=== PATIENT | female | born 1985 | race Caucasian/White ===

== ENCOUNTER 2024-04-24 17:20 | Emergency (ER) | payer OTHER, SELFPAY ==
[2024-04-24 17:24] VITALS: BP 141/79; PULSE 69; TEMP 36.9; O2SAT 100; BMI 22.7
--- NOTE | 2024-04-24 17:34 | ECG_ITS ---
[facility] Test Date: 2024-04-24 Pat Name: CHELY NOLAND Department: Room: - Gender: Female Glass [employer] Rep[employer]r: : 1985 Requested By: Order Number: [id number] Reading MD: KELY EASTON Measurements Intervals [place] Rate: 67 P: 16 [place]: 128 QRS: 58 QRSD: 76 T: 41 QT: 400 QTc: 416 Interpretive Statements 1100 Sinus rhythm 9110 normal ECG No previous ECG available for comparison Electronically Signed On 04-24-2024 18:03:34 EDT by KELY EASTON
--- NOTE | 2024-04-24 17:42 | ED.CHESTPAI1 ---
HPI - Chest Pain General Chief Complaint: Chest Pain Stated Complaint: Chest Pain Time Seen by Provider: 04/24/24 17:21 Source: patient Mode of arrival: Wheelchair Limitations: no limitations History of Present Illness HPI narrative: Patient is a 39-year-old female who presents to the emergency department with her significant other for evaluation of anterior chest pain radiating through to the back for the last hour. She states she does feel winded like she cannot catch her breath. She has had minimal cough. No fevers or other upper respiratory symptoms. She denies abdominal pain, nausea, vomiting, peripheral edema. Her significant other provides the majority of the history and states that she is a half a pack per day cigarette smoker. She had issues with chest pain in the past and was seen about 4-1/2 years ago before they lost insurance, patient was given a working diagnosis of POTS and myocarditis, although he states that she was never able to be really diagnosed because they could not complete testing as they ran out of money and insurance. She denies a possibility of . Related Data Previous Rx's ?Medication ?Instructions ?Recorded methylprednisolone 4 mg tablets in See Rx Instructions .Route 04/24/24 a dose pack (Medrol (Don)) .COMPLEX #21 ea Allergies Allergy/AdvReac Type Severity Reaction Status Date / Time Penicillins AdvReac Intermediate Rash Verified 04/24/24 17:30 bee Allergy Severe Hives Uncoded 04/24/24 17:30 Review of Systems ROS Constitutional Denies: fever or chills Ears, nose, mouth, and throat Denies: throat pain or nasal congestion Cardiovascular Reports: chest pain Respiratory Reports: shortness of breath and cough Gastrointestinal Denies: abdominal pain, nausea or vomiting Musculoskeletal Denies: back pain or neck pain Integumentary/Breast Denies: rash Hematologic/Lymphatic Denies: easy bruising or easy bleeding Exam Narrative Exam Narrative: Gen.: Awake, alert, in no distress Head: Normocephalic, atraumatic ENT: Moist mucous membranes Respiratory: No respiratory distress, lungs clear bilaterally Cardio: Regular rate and rhythm Gastrointestinal: Abdomen is soft, nondistended and nontender to palpation Extremities: Moves extremities equally, no pedal edema Psych: Normal mood and affect Neuro: No focal neuro deficit Skin: Warm, dry, intact Constitutional Vital Signs, click to edit/add: Last Vital Signs Temp 98.4 F 04/24/24 17:24 Pulse 69 04/24/24 17:24 Resp 18 04/24/24 17:24 BP 141/79 04/24/24 17:24 Pulse Ox 100 04/24/24 17:24 O2 Del Method Room Air 04/24/24 17:24 Course Vital Signs Vital signs: Vital Signs Temperature 98.4 F 04/24/24 17:24 Pulse Rate 69 04/24/24 17:24 Respiratory Rate 18 04/24/24 17:24 Blood Pressure 141/79 04/24/24 17:24 Pulse Oximetry 100 04/24/24 17:24 Oxygen Delivery Method Room Air 04/24/24 17:24 Temperature 98.4 F 04/24/24 17:24 Pulse Rate 69 04/24/24 17:24 Respiratory Rate 18 04/24/24 17:24 Blood Pressure 141/79 04/24/24 17:24 Pulse Oximetry 100 04/24/24 17:24 Oxygen Delivery Method Room Air 04/24/24 17:24 MDM - Chest Pain MDM Narrative Medical decision making narrative: Patient medicated with Toradol and Solu-Medrol, labs including D-dimer and troponin are within normal limits and EKG is unremarkable. Chest x-ray shows no evidence of acute cardiopulmonary changes. Patient with a heart score of 1 for risk factor of smoking. She is discharged with prednisone, possible pleurisy. Follow-up with PCP and return to the ER if symptoms change or worsen. SHARED APC VISIT, PHYSICIAN ATTESTATION: [id number] I performed a substantive part of the MDM during the patient?s E/M visit. I personally evaluated and examined the patient. I personally made or approved the documented management plan and acknowledge its risk of complications. Medical Records Data Attestation: I reviewed the patient's medical records. Lab Data Attestation: I reviewed the patient's lab results. Labs: Lab Results 04/24/24 Range/Units 17:34 WBC 8.0 (4.0-11.0) 10^3/uL RBC 4.24 (4.20-5.40) 10^6/uL Hgb 14.2 (12.0-16.0) g/dL Hct 40.6 (36.0-48.0) % MCV 95.8 (81.0-99.0) fL MCH 33.5 (26.7-34.0) pg MCHC 35.0 (29.9-35.2) g/dL RDW 12.5 (11.0-15.0) % Plt Count 317 (150-450) 10^3/uL MPV 10.3 (9.5-13.5) fL Neut % (Auto) 63.9 (43.0-75.0) % Lymph % (Auto) 21.0 (20.5-60.0) % [place] % (Auto) 12.6 H (1.7-12.0) % Eos % (Auto) 1.7 (0.9-7.0) % Baso % (Auto) 0.6 (0.2-2.0) % Neut # (Auto) 5.1 (1.4-6.5) 10^3/uL Lymph # (Auto) 1.7 (1.2-3.8) 10^3/uL [place] # (Auto) 1.0 H (0.3-0.8) 10^3/uL Eos # (Auto) 0.1 (0.0-0.7) 10^3/uL Baso # (Auto) 0.1 (0.0-0.1) 10^3/uL Abs Immat Gran (auto) 0.02 (0.00-0.03) 10^3/uL Imm/Tot Granulo (auto) 0.2 (0.0-0.5) % PT 10.9 (9.0-11.6) sec INR 1.03 D-Dimer 0.20 (<=0.59) mg/L FEU Sodium 140 (136-145) mmol/L Potassium 4.0 (3.5-5.1) mmol/L Chloride 105 (98-107) mmol/L Carbon Dioxide 22.4 (21.0-32.0) mmol/L Anion Gap 16.6 BUN 8.0 (7.0-18.0) mg/dL Creatinine 0.71 (0.55-1.02) mg/dL Est GFR ( Amer) >60 (>=60 mL/min/1.73m^2) Est GFR (Non-Af Amer) >60 (>=60 mL/min/1.73m^2) BUN/Creatinine Ratio 11.3 Glucose 121 H (74-106) mg/dL Calcium 9.1 (8.5-10.1) mg/dL Total Bilirubin 0.5 (0.2-1.0) mg/dL AST 22 (15-37) U/L ALT 31 (14-59) U/L Alkaline Phosphatase 64 (46-116) U/L Troponin I High Sens 7.0 (4.0-51.3) pg/mL NT-Pro-B Natriuret Pep 28.0 (<=450.0) pg/mL Total Protein 7.1 (6.4-8.2) g/dL Albumin 3.8 (3.4-5.0) g/dL Globulin 3.3 g/dL Albumin/Globulin Ratio 1.2 Lipase 28.0 (16.0-77.0) U/L Serum HCG, Qual Negative (NEGATIVE) Imaging Data Chest x-ray: Attestation: I have reviewed the pertinent imaging results. Radiologist's impression: ITS Impressions Chest X-Ray 04/24/24 18:24 IMPRESSION: No acute findings. Electronically authenticated by: GENET SMITH Date: 04/24/2024 20:00 ECG Data Attestation: I personally reviewed and interpreted this ECG as follows: (Normal sinus rhythm at a rate of 67, no acute ST elevation or ectopy. EKG reviewed by attending physician) Heart Score History: Slightly/Non-Suspicious ECG: Normal Age: <45 years Risk Factors: 1 or 2 Risk Factors Troponin: <Normal Limit Total Heart Score Recommendations & Risks:: 1 Discharge Plan Discharge Chief Complaint: Chest Pain Clinical Impression: Chest pain Patient Disposition: Home, Self-Care Time of Disposition Decision: 20:10 Condition: Good Prescriptions / Home Meds: New methylprednisolone [Medrol (Don)] 4 mg tablets,dose pack See Rx Instructions .ROUTE .COMPLEX Qty: 21 0RF Rx Instructions: Taper as directed Print Language: Kiswahili Instructions: Chest Pain (ED) Referrals: Physician,Non-Staff, MD [Primary Care Provider] - 1 week
[2024-04-24] MEDS: 0.9 % SODIUM CHLORIDE 500 ML IV (17:47)
[2024-04-24 17:51] LABS: Basophils Absolute Auto 0.1 10^3/uL (0.0-0.1); Basophils Percent Auto 0.6 % (0.2-2.0); Eosinophils Absolute Auto 0.1 10^3/uL (0.0-0.7); Eosinophils Percent Auto 1.7 % (0.9-7.0); Hematocrit 40.6 % (36.0-48.0); Hemoglobin 14.2 g/dL (12.0-16.0); Immature Granulocytes Abs Auto 0.02 10^3/uL (0.00-0.03); Immature Granulocytes Pct Auto 0.2 % (0.0-0.5); Lymphocytes Absolute Auto 1.7 10^3/uL (1.2-3.8); Mean Corpuscular Hemoglobin 33.5 pg (26.7-34.0); Mean Corpuscular Volume 95.8 fL (81.0-99.0); Mean Platelet Volume 10.3 fL (9.5-13.5); Monocytes Percent Auto 12.6 % (1.7-12.0); Neutrophils Absolute Auto 5.1 10^3/uL (1.4-6.5); Neutrophils Percent Auto 63.9 % (43.0-75.0); Platelet Count 317 10^3/uL (150-450); Red Blood Count 4.24 10^6/uL (4.20-5.40); Red Cell Distribution Width 12.5 % (11.0-15.0)
[2024-04-24 18:06] LABS: HCG Qualitative NEGATIVE (NEGATIVE); INR 1.03; Internal Control Within Normal Limits; Prothrombin Time 10.9 sec (9.0-11.6)
[2024-04-24] MEDS: KETOROLAC TROMETHAMINE 30 MG/ML VIAL IVP (18:14)
[2024-04-24] MEDS: METHYLPREDNISOLONE SOD SUCC PF 125 MG/2 ML VIAL IVP (18:14)
[2024-04-24 18:15] LABS: Alanine Aminotransferase 31 U/L (14-59); Albumin Globulin Ratio 1.2; Albumin Level 3.8 g/dL (3.4-5.0); Alkaline Phosphatase 64 U/L (46-116); Anion Gap 16.6; Aspartate Amino Transferase 22 U/L (15-37); BUN Creatinine Ratio 11.3; Bilirubin Total 0.5 mg/dL (0.2-1.0); Calcium 9.1 mg/dL (8.5-10.1); Carbon Dioxide 22.4 mmol/L (21.0-32.0); Chloride 105 mmol/L (98-107); Estimated GFR (African America >60 (>=60 mL/min/1.73m^2); Estimated GFR (Non-African Ame >60 (>=60 mL/min/1.73m^2); Globulin 3.3 g/dL; Glucose 121 mg/dL (74-106); Sodium 140 mmol/L (136-145); Total Protein 7.1 g/dL (6.4-8.2)
--- NOTE | 2024-04-24 18:24 | XR_ITS ---
[address] [address] Patient Name: CHELY NOLAND MRN: [id number] date: 1985 Sex: F Assigned Patient Location: ER Current Patient Location: ED.MAIN Accession/Order Number: [id number] Exam Date: 04/24/2024 18:20 Report Date: 04/24/2024 20:00 At the request of: TERESA HER Procedure: XR chest 1V PORTABLE CHEST X-RAY. INDICATION: Chest pain. COMPARISON: None. TECHNIQUE: Single AP portable chest radiograph. FINDINGS: TUBES AND LINES: None. LUNGS: Lungs are clear. PLEURA: No effusions or pneumothorax. HEART AND MEDIASTINUM: Within normal limits for portable technique. OSSEOUS STRUCTURES: No acute abnormality. XR/XR chest 1V IMPRESSION: No acute findings. Electronically authenticated by: GENET SMITH Date: 04/24/2024 20:00
[2024-04-24 20:18] VITALS: BP 145/82
== END 2024-04-24 20:20 | disposition home or self-care (01) ==
PROVIDERS: Physician Assistant; Emergency Provider Emergency Medicine
DX: R07.9 Chest pain, unspecified (principal); F17.210 Nicotine dependence, cigarettes, uncomplicated
CPT/HCPCS: 36415; 71045; 80053; 83690; 83880; 84484; 84703; 85025; 85378; 85610; 93005; 96374; 96375; 99285; J1885; J2919